=== PATIENT | female | born 1975 | race Caucasian/White ===

== ENCOUNTER 2022-08-11 11:47 | Outpatient (RCR) | payer MEDICARE, SELFPAY ==
[2022-08-11 12:00] VITALS: BP 123/73; PULSE 80; RESP 18; TEMP 36.4; O2SAT 99
[2022-08-11 12:47] LABS: Anion Gap 12.6 (5-19); Blood Urea Nitrogen 6 mg/dL (6-20); Calcium 8.7 mg/dL (8.5-10.5); Carbon Dioxide 26 mmol/L (22-29); Chloride 101 mmol/L (98-107); Creatine Phosphokinase 25 U/L (26-192); Glomerular Filtration Rate 108.1 mL/min (90-130); Glucose 84 mg/dL (65-115); Osmolality Calculated 279 mOsm/kg (285-295); Potassium 3.6 mmol/L (3.5-5.1); Sodium 136 mmol/L (136-145)
[2022-08-11 13:04] VITALS: BMI 23.5
== END 2022-08-27 23:59 | disposition home or self-care (01) ==
LOC: GILAB 11:47
PROVIDERS: Internal Medicine
DX: M86.9 Osteomyelitis, unspecified (principal)
CPT/HCPCS: 36415; 80048; 82550